=== PATIENT | female | born 1950 | race Caucasian/White ===

== ENCOUNTER 2020-12-27 17:14 | Emergency (ER) | payer OTHER, MEDICAID ==
[~2020-12-27] VITALS: Ht 160 cm; Wt 77.1 kg
[~2020-12-27 17:14] MED LIST: CLON0.5T4 PO; GABA-534 PO; LOSA25TA27 PO; NORT25CA PO; SERT-437 PO
--- NOTE | 2020-12-27 17:30 | NUR ---
BINDU XIONG From home "Diarrhea x5days Now feeling weak". On room air, breathing evenly and unlabored. Connected to the monitor and pulse ox. Kept comfortable, will continue to monitor accordingly.
[2020-12-27] MEDS ORDERED: MORPHINE SULFATE INJ 2 MG/ML DISP.SYRIN ONE (17:36)
--- NOTE | 2020-12-27 17:42 | NUR ---
RUFINA, SON, CALLED. [phone].
[2020-12-27 17:43] LABS: BASOPHILS % (AUTO) 0.6 % (0.0-2.0); EOSINOPHILS % (AUTO) 2.4 % (0.0-6.0); HEMATOCRIT 32 % (33-45); HEMOGLOBIN 10.7 g/dL (11.5-14.8); LYMPHOCYTES # (AUTO) 1.6 K/uL (0.8-4.8); LYMPHOCYTES % (AUTO) 19.3 % (20.0-44.0); MEAN CORPUSCULAR HGB CONC 33 g/dl (31.0-36.0); MEAN CORPUSCULAR VOLUME 91 fL (82-100); MONOCYTES # (AUTO) 0.7 K/uL (0.1-1.30); MONOCYTES % (AUTO) 8.7 % (2.0-12.0); NEUTROPHILS # (AUTO) 5.6 K/uL (1.8-8.9); PLATELET COUNT (AUTO) 118 K/uL (150-450); RED BLOOD CELL COUNT(AUTO) 3.55 MIL/uL (4.0-5.2); WHITE BLOOD COUNT (AUTO) 8.1 K/uL (4.3-11.0)
[2020-12-27 17:55] LABS: ALANINE AMINOTRANSFERASE 25 U/L (12-78); ALBUMIN 2.9 g/dL (3.4-5.0); ALKALINE PHOSPHATASE 136 U/L (46-116); ASPARTATE AMINOTRANSFERASE 30 U/L (15-37); BILIRUBIN,DIRECT 0.1 mg/dL (0.0-0.2); BILIRUBIN,TOTAL 0.2 mg/dL (0.2-1.0); CALCIUM, SERUM 8.3 mg/dL (8.5-10.1); CARBON DIOXIDE 20 mmol/L (21-32); CHLORIDE 106 mmol/L (98-107); GLUCOSE 165 mg/dL (74-106); LIPASE 162 U/L (73-393); POTASSIUM 3.7 mmol/L (3.5-5.1); SODIUM SERUM 139 mmol/L (136-145); TOTAL PROTEIN, SERUM 6.6 g/dL (6.4-8.2); UREA NITROGEN, BLOOD 35 mg/dL (7-18)
[2020-12-27] MEDS ORDERED: IV NS 0.9% 1,000 ML BAG IV ONE ×2 (18:00→19:00)
[2020-12-27] MEDS ORDERED: MORPHINE SULFATE INJ 2 MG/ML DISP.SYRIN IV ONE (18:00)
--- NOTE | 2020-12-27 19:05 | NUR ---
CALLED [facility] AND OPENED A CASE. SPOKE WITH [facility] AND THEIR MD WILL CALL TO CONSULT
[2020-12-27] MEDS ORDERED: LOPE2CAP40 PO (19:17)
--- NOTE | 2020-12-27 19:17 | NUR ---
report given to Rosey STEPHENS next shift for leidy.
--- NOTE | 2020-12-27 19:33 | NUR ---
SPOKE WITH [facility] REGARDING PT TRANSPORT HOME. WILL CALL BACK TO GIVE US THE ETA OF AMBULANCE.
--- NOTE | 2020-12-27 20:34 | NUR ---
report given to ems
--- NOTE | 2020-12-27 20:36 | NUR ---
Patient discharged to home in stable condition. Written and verbal after care instructions given. Patient verbalizes understanding of instruction. IV removed. Catheter intact and site benign. Pressure and 4x4 applied to site. No bleeding noted. Pt taken via ambulance back home
[2020-12-27 20:38] VITALS: BP 129/79
== END 2020-12-27 20:36 | disposition home or self-care (01) ==
LOC: ER 17:25
DX: R19.7 Diarrhea, unspecified (principal); I12.9 Hypertensive chronic kidney disease with stage 1 through stage 4 chronic kidney disease, or unspecified chronic kidney disease; E11.22 Type 2 diabetes mellitus with diabetic chronic kidney disease; N18.9 Chronic kidney disease, unspecified; R10.84 Generalized abdominal pain; Z79.899 Other long term (current) drug therapy
CPT/HCPCS: 36415; 71045; 74176; 80048; 80076; 83690; 84484; 85025; 93005; 96361; 96374; 99285; J2270; J7030 ×2